=== PATIENT | male | born 1965 | race African-American/Black ===

== ENCOUNTER 2018-01-15 08:56 | Inpatient (IN) | payer SELFPAY ==
[~2018-01-15] VITALS: Ht 177.8 cm; Wt 96.2 kg
[2018-01-15 10:19] LABS: BASOPHIL (%) 0.5 % (0-1); EOSINOPHIL (%) 3.3 % (0-5); EOSINOPHIL COUNT 0.3 K/uL (0-0.3); HEMATOCRIT 35.3 % (38.0-50.0); HEMOGLOBIN 13.1 G/DL (12.5-16.6); IMMATURE GRANULOCYTE (%) 0.8 % (0.0-0.7); LYMPHOCYTE (%) 28.1 % (15-42); LYMPHOCYTE COUNT 2.1 K/uL (1.0-2.8); MCH 29.1 PG (29.0-34.0); MCHC 37.1 G/DL (30.0-36.0); MCV 78.4 FL (86-99); MONOCYTE (%) 11.5 % (3-12); MONOCYTE COUNT 0.9 K/uL (0-0.8); NEUTROPHIL (%) 55.8 % (45-76); NEUTROPHIL COUNT 4.2 K/uL (1.8-6.4); PLATELET COUNT 201 K/uL (156-360); RBC DIS.WIDTH-CV 13.7 % (11.8-14.6); RBC DIS.WIDTH-SD 38.7 % (39-53); WHITE BLOOD COUNT 7.5 K/uL (4.1-10.2)
[2018-01-15 10:26] LABS: INTER. NORMALIZED RATIO 1.2
[2018-01-15 10:28] LABS: PTT 28.1 SEC (25-37)
[2018-01-15 10:41] LABS: TROP-I INTERPRETATION NEGATIVE; TROPONIN-I < 0.01 ng/mL (0.0-0.30)
[2018-01-15 10:42] LABS: ALBUMIN 4.5 g/dL (3.2-4.8); CHLORIDE 100 mEq/L (99-109); POTASSIUM 3.4 mEq/L (3.7-5.4); SODIUM 137 mEq/L (136-147)
[2018-01-15 10:44] LABS: GLUCOSE 109 mg/dL (70-99); TOTAL PROTEIN 7.5 g/dL (6.4-8.3)
[2018-01-15 10:46] LABS: TOTAL BILIRUBIN 0.9 mg/dL (0.0-1.0)
[2018-01-15 10:48] LABS: ALKALINE PHOSPHATASE 61 IU/L (3-129); CREATININE 0.7 mg/dL (0.6-1.3); GFR ESTIMATE (CALCULATED) > 59 mL/min/ (58.99-99999)
[2018-01-15 10:49] LABS: UREA NITROGEN (BUN) 11 mg/dL (9-23)
[2018-01-15 10:50] LABS: AST (GOT) 18 IU/L (2-34)
[2018-01-15 10:51] LABS: ALT (GPT) 21 IU/L (3-49); LIPASE 17 U/L (1.0-51.0)
[2018-01-15 10:59] LABS: APPEARANCE CLEAR ((CLEAR)); BILIRUBIN NEGATIVE; BLOOD NEGATIVE; COLOR YELLOW ((YELLOW)); GLUCOSE (STRIP) NEGATIVE; KETONES NEGATIVE; LEUKOCYTES NEGATIVE; NITRITE NEGATIVE; PROTEIN (STRIP) NEGATIVE; SPECIFIC GRAVITY 1.014 (1.000-1.030); UCUL ADDED? NO; UROBILINOGEN 0.2 MG/DL (0.2-1.0)
[2018-01-15] MEDS ORDERED: LOPRESSOR100 M1 PO (12:26)
[2018-01-15] MEDS ORDERED: LISINOPRIL-HCT1 EAC3 PO (12:27)
[2018-01-15] MEDS ORDERED: NORVASC10 MG PO (12:27)
[2018-01-15] MEDS ORDERED: ASPIRIN325 MG PO (12:28)
[2018-01-15] MEDS ORDERED: K-DUR20 MEQ PO (12:28)
[2018-01-15] MEDS ORDERED: LOPID600 MG PO (12:28)
[2018-01-15] MEDS ORDERED: NEXIUM20 MG PO (12:29)
[2018-01-15] MEDS ORDERED: FISH OIL 1,2001 EAC4 PO (12:29)
[2018-01-15] MEDS ORDERED: CENTRUM MEN'S1 EACH PO (12:29)
[2018-01-15 13:39] VITALS: BP 147/88
[2018-01-15 16:57] LABS: BASOPHIL (%) 0.5 % (0-1); EOSINOPHIL (%) 2.7 % (0-5); EOSINOPHIL COUNT 0.2 K/uL (0-0.3); HEMATOCRIT 34.5 % (38.0-50.0); HEMOGLOBIN 12.5 G/DL (12.5-16.6); IMMATURE GRANULOCYTE (%) 0.7 % (0.0-0.7); LYMPHOCYTE (%) 30.8 % (15-42); LYMPHOCYTE COUNT 2.3 K/uL (1.0-2.8); MCH 28.5 PG (29.0-34.0); MCHC 36.2 G/DL (30.0-36.0); MCV 78.6 FL (86-99); MONOCYTE (%) 11.8 % (3-12); MONOCYTE COUNT 0.9 K/uL (0-0.8); NEUTROPHIL (%) 53.5 % (45-76); NEUTROPHIL COUNT 3.9 K/uL (1.8-6.4); PLATELET COUNT 199 K/uL (156-360); RBC DIS.WIDTH-CV 13.8 % (11.8-14.6); RBC DIS.WIDTH-SD 39.2 % (39-53); RED BLOOD COUNT 4.39 M/uL (4.00-5.50); WHITE BLOOD COUNT 7.3 K/uL (4.1-10.2)
[2018-01-15 17:16] LABS: TROP-I INTERPRETATION NEGATIVE; TROPONIN-I < 0.01 ng/mL (0.0-0.30)
[2018-01-15 19:53] VITALS: BP 162/92
[2018-01-15 23:26] LABS: TROP-I INTERPRETATION NEGATIVE; TROPONIN-I 0.02 ng/mL (0.0-0.30)
[2018-01-16] VITALS: BP 158/90
[2018-01-16 03:52] VITALS: BP 144/80
[2018-01-16 05:05] LABS: BASOPHIL (%) 0.5 % (0-1); EOSINOPHIL (%) 4.1 % (0-5); EOSINOPHIL COUNT 0.4 K/uL (0-0.3); HEMATOCRIT 32.3 % (38.0-50.0); HEMOGLOBIN 11.8 G/DL (12.5-16.6); IMMATURE GRANULOCYTE (%) 0.8 % (0.0-0.7); LYMPHOCYTE (%) 28.8 % (15-42); LYMPHOCYTE COUNT 2.4 K/uL (1.0-2.8); MCH 28.9 PG (29.0-34.0); MCHC 36.5 G/DL (30.0-36.0); MCV 79.2 FL (86-99); MONOCYTE (%) 9.6 % (3-12); MONOCYTE COUNT 0.8 K/uL (0-0.8); NEUTROPHIL (%) 56.2 % (45-76); NEUTROPHIL COUNT 4.7 K/uL (1.8-6.4); PLATELET COUNT 177 K/uL (156-360); RBC DIS.WIDTH-CV 13.5 % (11.8-14.6); RBC DIS.WIDTH-SD 38.5 % (39-53); RED BLOOD COUNT 4.08 M/uL (4.00-5.50); WHITE BLOOD COUNT 8.4 K/uL (4.1-10.2)
[2018-01-16 05:47] LABS: CHLORIDE 101 MEQ/L (99-109); CREATININE 0.7 MG/DL (0.6-1.3); GFR ESTIMATE (CALCULATED) > 59 mL/min/ (58.99-99999); GLUCOSE 117 mg/dL (70-99); POTASSIUM 3.5 MEQ/L (3.7-5.4); SODIUM 138 MEQ/L (136-147); UREA NITROGEN (BUN) 7 mg/dL (9-23)
[2018-01-16 08:00] VITALS: BP 149/98
[2018-01-16 11:53] VITALS: BP 157/95
[2018-01-16] MEDS ORDERED: METRONIDAZOLE500 MG PO (12:13)
[2018-01-16] MEDS ORDERED: CIPRO500 MG PO (12:15)
[2018-01-16] MEDS ORDERED: ULTRAM50 MG PO (12:20)
== END 2018-01-16 14:46 | disposition home or self-care (01) | DRG 379 ==
LOC: EME 08:56 → EDOF 12:26 → ENRESERV 12:52 → CANRESERV 12:52 → ENRESERV 13:12 → 4SOUTH 13:20
PROVIDERS: Emergency Medicine; Hospitalist; Specialist
DX: K57.33 Diverticulitis of large intestine without perforation or abscess with bleeding (principal); K76.0 Fatty (change of) liver, not elsewhere classified; I10 Essential (primary) hypertension; E78.5 Hyperlipidemia, unspecified; E87.6 Hypokalemia; K63.89 Other specified diseases of intestine; R07.89 Other chest pain; E66.9 Obesity, unspecified; Z68.30 Body mass index [BMI] 30.0-30.9, adult; Z79.82 Long term (current) use of aspirin; M54.41 Lumbago with sciatica, right side
CPT/HCPCS: 71045; 74177; 80048; 80053; 81003; 83690; 84484; 85025; 85025 91; 85610; 85730; 86850; 86900; 86901; 87040; 87177; 87493; 87506; 93005; 99281; 99285; C9113; J0744; J3480; J7030; J7040